=== PATIENT | male | born 1975 | race Caucasian/White ===

== ENCOUNTER 2021-08-07 13:24 | Emergency (ER) | payer MEDICARE, OTHER ==
[2021-08-07 13:57] LABS: BASOPHIL 0.7 % (0-2); EOSINOPHIL 2.8 % (0-5); HCT 55.4 % (42.0-52.0); HGB 18.9 g/dl (13.2-18.0); LYMPHOCYTE 16.2 % (15-48); MCH 32.2 pg (25.0-31.0); MCHC 34.1 g/dL (32.0-36.0); MCV 94.4 fL (78.0-100.0); MONOCYTE 6.5 % (0-12); MPV 10.1 fL (6.0-9.5); NEUTROPHIL 73.5 % (41-80); NRBC 0; PLT 245 K/uL (150-400); RBC 5.87 M/uL (4.70-6.00); RDW 12.5 % (11.5-14.0); WBC 10.7 K/uL (4.0-10.5)
[2021-08-07 14:01] LABS: BILIRUBIN - TOTAL 0.8 mg/dL (0.2-1.0); BUN/CREAT RATIO (CALC) 13.9 RATIO; CREATININE 1.08 mg/dL (0.67-1.17); GLOBULIN (CALCULATION) 3.2 g/dL; POTASSIUM 4.7 mmol/L (3.5-5.1); TOTAL PROTEIN 7.2 g/dL (6.4-8.2)
[2021-08-07] MEDS ORDERED: OMEPRAZOLE40 MG PO (17:26)
== END 2021-08-07 18:00 | disposition home or self-care (01) ==
LOC: FER 13:24
PROVIDERS: Internal Medicine
DX: R07.89 Other chest pain (principal); R74.8 Abnormal levels of other serum enzymes; D75.1 Secondary polycythemia; I25.10 Atherosclerotic heart disease of native coronary artery without angina pectoris; I10 Essential (primary) hypertension; Z79.899 Other long term (current) drug therapy
CPT/HCPCS: 36415; 71045; 71275; 72193; 80053; 83690; 84484; 85025; 93005; Q9967